=== PATIENT | female | born 1930 | race Caucasian/White ===

== ENCOUNTER 2019-09-20 06:26 | Emergency (ER) | payer OTHER ==
[~2019-09-20] VITALS: Ht 160 cm; Wt 63.5 kg
[2019-09-20 06:33] VITALS: Ht 160 cm; Wt 63.5 kg
[2019-09-20 07:55] VITALS: BP 118/81
== END 2019-09-20 07:55 | disposition home or self-care (01) ==
LOC: ED 06:26
DX: L76.22 Postprocedural hemorrhage of skin and subcutaneous tissue following other procedure (principal); I10 Essential (primary) hypertension; Z79.01 Long term (current) use of anticoagulants
CPT/HCPCS: J2001